=== PATIENT | female | born 1945 ===

== ENCOUNTER 2023-12-21 08:19 | Emergency (ER) | payer MEDICARE, OTHER, SELFPAY ==
--- NOTE | ~2023-12-21 | XR_ITS ---
EXAMINATION: XR wrist RT min 3V DATE: 12/21/2023 09:07 INDICATION: Right wrist deformity and swelling. Fall. TECHNIQUE: 4 views of right wrist were obtained. COMPARISON: None. FINDINGS: Bone alignment is normal. No fracture. 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 IMPRESSION: 1. Polyarticular osteoarthritis. Reviewed, dictated and finalized at location A.
--- NOTE | ~2023-12-21 | XR_ITS ---
EXAMINATION: XR forearm RT 2V DATE: 12/21/2023 09:07 INDICATION: Right forearm deformity and swelling. Fall. TECHNIQUE: 2 views of right forearm were obtained. COMPARISON: None. FINDINGS: Bone alignment is normal. No fracture. There is severe osteoarthritis of first carpometacar pal joint. No elbow joint effusion. There is forearm soft tissue swelling. IMPRESSION: 1. No fracture. Reviewed, dictated and finalized at location A. IMPRESSION: 1. No fracture.
[2023-12-21 08:24] VITALS: BP 144/82; PULSE 98; RESP 16; TEMP 36.8; O2SAT 99
--- NOTE | 2023-12-21 09:33 | ED.UPPEXIN ---
HPI - Extremity Injury (Upper) General Chief Complaint: Extremity Injury, Upper Stated Complaint: fall, R arm injury Time Seen by Provider: 12/21/23 08:23 History of Present Illness HPI narrative: Patient is a 78-year-old female who presents ER with right forearm discomfort. She had a trip and fall yesterday while at the airport getting ready to travel. She then flew here. She developed swelling to her forearm and hand overnight with increased bruising. She did not strike her head or lose consciousness. She does take Brilinta. Unknown last tetanus. Related Data Home Medications Medication Instructions Recorded Confirmed cetirizine 10 mg tablet mg 12/21/23 duloxetine 30 mg capsule,delayed mg PO 12/21/23 release empagliflozin 10 mg tablet mg 12/21/23 (Jardiance) metoprolol succinate 25 mg mg PO 12/21/23 tablet,extended release 24 hr nitroglycerin 0.4 mg sublingual mg 12/21/23 12/21/23 tablet pravastatin 80 mg tablet mg 12/21/23 sacubitril 24 mg-valsartan 26 mg tablet 12/21/23 tablet (Entresto) ticagrelor 90 mg tablet (Brilinta) mg 12/21/23 Allergies Allergy/AdvReac Type Severity Reaction Status Date / Time No Known Allergies Allergy Mild Verified 12/21/23 08:27 Review of Systems Constitutional: Constitutional: Reports no additional constitutional complaints Musculoskeletal: Musculoskeletal: Denies arthralgias, Denies joint swelling and Denies muscle cramps Integumentary/Breasts: Skin/Breast: Denies rash and Denies skin ulcer Comments: skin tear Neurologic: Reports system reviewed and no additional complaints, except as documented PMFSH Past Medical History Medical History (Updated 12/21/23 @ 09:58 by Corey Romero MD) Hyperlipidemia Hypertension Exam Narrative: GENERAL: Well-appearing, well-nourished, and in no acute distress. HEAD: Normocephalic, atraumatic. ENT: Mucous membranes moist. HEART: Regular rate and rhythm. Normal peripheral pulses. EXTREMITIES: Normal range of motion. Mild edema right hand and forearm. The compartments of the hand and forearm are soft and nontender. There is a area around the skin tear where there is a firm hematoma. Sensation intact as is capillary refill parent SKIN: Warm, dry. Skin tear right forearm. NEURO: Alert and oriented x3. PSYCH: Normal mood and affect. Course Course Emergency Course: patient resting comfortably. Educated to elevate her arm and keep pressure on hematoma. Discussed return precautions. Tetanus updated. Vital Signs Vital signs: Vital Signs Temperature 98.2 F 12/21/23 08:24 Pulse Rate 98 12/21/23 08:24 Respiratory Rate 16 12/21/23 08:24 Blood Pressure 144/82 H 12/21/23 08:24 Pulse Oximetry 99 12/21/23 08:24 Temperature 98.2 F 12/21/23 08:24 Pulse Rate 98 12/21/23 08:24 Respiratory Rate 16 12/21/23 08:24 Blood Pressure 144/82 H 12/21/23 08:24 Pulse Oximetry 99 12/21/23 08:24 MDM - Extremity Injury (Upper) Imaging Data Radiologist's impression: ITS Impressions Forearm X-Ray 12/21/23 09:09 IMPRESSION: 1. No fracture. Wrist X-Ray 12/21/23 09:09 IMPRESSION: 1. Polyarticular osteoarthritis. Discharge Plan Discharge Clinical Impression: Hematoma of right forearm, Skin tear Patient Disposition: Home, Self-Care Condition: Stable Instructions: Skin Tear (ED), Hematoma (ED) Additional Instructions: Keep pressure on your hematoma and elevate your arm to decrease swelling. Follow up with primary care doctor if you have additional injury. Return to the ER if your hand is cold and blue, you have decreased sensation, you have additional concerns. Your tetanus shot was updated today. Prescriptions: No Action cetirizine 10 mg tablet pravastatin 80 mg tablet nitroglycerin 0.4 mg tablet, sublingual metoprolol succinate 25 mg tablet extended release 24 hr PO
[2023-12-21] MEDS: TETANUS,DIPHTHERIA,AC PERTUSSIS ADULT (0.5 ML) BOOSTRIX IM (09:55)
== END 2023-12-21 10:20 | disposition home or self-care (01) ==
PROVIDERS: Emergency Provider Emergency Medicine
DX: S50.11XA Contusion of right forearm, initial encounter (principal); Z23 Encounter for immunization; E78.5 Hyperlipidemia, unspecified; I10 Essential (primary) hypertension; M19.031 Primary osteoarthritis, right wrist; Z79.84 Long term (current) use of oral hypoglycemic drugs; Z79.02 Long term (current) use of antithrombotics/antiplatelets; W01.0XXA Fall on same level from slipping, tripping and stumbling without subsequent striking against object, initial encounter
CPT/HCPCS: 73090; 73110; 90471; 90715; 99282; 99283